=== PATIENT | male | born 1965 | race African-American/Black ===

== ENCOUNTER 2017-02-17 06:31 | Emergency (ER) | payer SELFPAY ==
[~2017-02-17] VITALS: Ht 167.6 cm; Wt 72.6 kg
[2017-02-17] MEDS ORDERED: MORP15TA PO (06:56)
[2017-02-17] MEDS ORDERED: CYCL5TAB PO (06:56)
--- NOTE | 2017-02-17 06:57 | PHYS DOC ---
Past Medical History Past Medical History: Hypertension Additional Past Medical Histor: ulcer Past Surgical History: Other Additional Past Surgical Histo: "STOMACH LINING", L FOOT SURGERY Alcohol Use: None Drug Use: Cocaine, Marijuana Adult General Chief Complaint Chief Complaint: buttocks pain HPI HPI 51-year-old male presenting to the emergency department today with left buttocks pain and left hamstring pain. His pain has been present for 2 weeks. It is intermittent worse with walking. It radiates from the buttocks down to the hamstrings. It is worse with flexion of the hamstrings. It is improved with extension of the hamstrings. He denies any low back pain. The pain currently is moderate. It waxes and wanes in severity. He denies any recent trauma to his hip. He denies any falls. Review of systems is negative for urinary or fecal incontinence, chest pain shortness of breath abdominal pain nausea vomiting fevers chills. He denies perineal paresthesias. He denies unilateral leg swelling or history of blood clots. All other review of systems is negative unless otherwise noted in history of present illness. ED course: 51-year-old male presenting to the emergency department with left buttocks and hamstring pain. Vital signs afebrile with normal heart rate. Patient has chronic hypertension which is present here as well. Physical examination: Patient has nontender venous system in the leg. There is no swelling. No clinical evidence of DVT present. Nontender midline lumbar back. Pain with passive extension of the knee and the hamstrings. Normal range of motion of the hip. The patient was given intramuscular and oral medications for pain. He had a ride home. He was in discharged home to follow-up with his doctor in the next 2-3 days. The patient was then discharged home in stable condition to follow up with their primary care physician over the next 2-3 days. They were to return if their symptoms worsened or if they were concerned for any reason. [id number] discharge instructions and return precautions were given. Patient's questions were answered to their satisfaction. Patient is comfortable plan. Review of Systems Review of Systems SEE ABOVE. Allergies Allergies Allergies Coded Allergies Type Severity Reaction Last Updated Verified No Known Drug Allergies 01/09/15 No Physical Exam Physical Exam Constitutional: Well developed, well nourished, no acute distress, non-toxic appearance. [] HENT: Normocephalic, atraumatic, bilateral external ears normal, oropharynx moist, no oral exudates, nose normal. [] Eyes: PERRLA, EOMI, conjunctiva normal, no discharge. [] Neck: Normal range of motion, no tenderness, supple, no stridor. [] Cardiovascular:Heart rate regular rhythm, no murmur [] Lungs & Thorax: Bilateral breath sounds clear to auscultation [] Abdomen: Bowel sounds normal, soft, no tenderness, no masses, no pulsatile masses. [] Skin: Warm, dry, no erythema, no rash. [] Back: No tenderness, no CVA tenderness. [] Extremities: No tenderness, no cyanosis, no clubbing, ROM intact, no edema. [] palpable pulses in all extremities with 2 second cap refill. Neurologic: Alert and oriented X 3, normal motor function, normal sensory function, no focal deficits noted. [] Psychologic: Affect normal, judgement normal, mood normal. [] Current Patient Data Vital Signs Vital Signs Date Time Temp Pulse Resp B/P (MAP) Pulse Ox O2 Delivery O2 Flow Rate FiO2 02/17/17 06:38 98.2 77 16 198/105 (136) 100 Room Air 98.2 EKG EKG [] Radiology/Procedures Radiology/Procedures [] Course & Med Decision Making Course & Med Decision Making Pertinent Labs and Imaging studies reviewed. (See chart for details) [] Dragon Disclaimer Dragon Disclaimer This electronic medical record was generated, in whole or in part, using a voice recognition dictation system. Departure Departure Impression: Primary Impression: Left thigh pain Disposition: HOME, SELF-CARE Condition: STABLE Referrals: NO PCP (PCP) ARLEEN POMPA MD Patient Instructions: Muscle Cramps, [id number] Additional Instructions: Thank you for allowing us to participate in your care today. 1. You have been provided pain medication here in the emergency department. Do not drive home. Do not operate machinery or work on these medications. 2. follow-up with your doctor in the next few days if her pain is not improving. Followup with your primary care physician in 3 days if your symptoms do not improve. Call your Primary Doctor tomorrow and inform them of your visit today. If you do not have a primary care provider you can ask for a list of our primary care providers. Return to the emergency department you have any new or concerning findings. This should be evaluated by the primary care physician and any necessary consulting services for continued management within a few days after discharge. Return to emergency room if you have any new or concerning symptoms including but not limited to fever, chills, nausea, vomiting, intractable pain, any new rashes, chest pain, shortness of air, uncontrolled bleeding, difficulty breathing, and/or vision loss. You may have been prescribed medication that can change in your level of thinking and ability to operate machinery. These medications include hydrocodone and Ativan. Also, Benadryl has been known to do this as well. Be sure to check with your pharmacist and ask if the medications you've prescribed can affect your level of consciousness. I recommend not operating heavy machinery or driving while on medication such as these. Scripts Cyclobenzaprine Hcl (CYCLOBENZAPRINE HCL) 5 Mg Tablet 1 TAB PO TID PRN Y for PAIN, #10 TAB Prov: MOLLY TRISTAN MD 02/17/17 Morphine Sulfate (MORPHINE SULFATE) 15 Mg Tablet 1 TAB PO PRN Q6-8HRS Y for SEVERE PAIN, #8 TAB Prov: MOLLY TRISTAN MD 02/17/17 MOLLY TRISTAN MD Feb 17, 2017 06:57
[2017-02-17] MEDS ORDERED: CYCLOBENZAPRINE 10 MG TABLET. PO ONE (07:00)
[2017-02-17] MEDS ORDERED: HYDROmorphone 2 MG/ML VIAL IM ONE (07:00)
[2017-02-17 07:46] VITALS: BP 177/118
== END 2017-02-17 08:20 | disposition home or self-care (01) ==
LOC: ER 06:31
DX: M79.652 Pain in left thigh (principal); M54.5 Low back pain; I10 Essential (primary) hypertension; F14.10 Cocaine abuse, uncomplicated; F12.10 Cannabis abuse, uncomplicated
CPT/HCPCS: 96372; 99283; J1170

== ENCOUNTER 2017-12-20 11:14 | Emergency (ER) | payer SELFPAY | END 2017-12-20 12:19 | disposition home or self-care (01) | LOC: ER 12:19 | DX: G89.29 Other chronic pain (principal); M54.5 Low back pain; H66.92 Otitis media, unspecified, left ear; I10 Essential (primary) hypertension | CPT/HCPCS: 99283 ==

== ENCOUNTER 2019-08-14 07:32 | Emergency (ER) | payer BC ==
[~2019-08-14] VITALS: Ht 175.3 cm; Wt 62.1 kg
[~2019-08-14 07:32] MED LIST: AMOX1TAB61 PO; AMOX875T PO; CYCL10TA2 PO; CYCL5TAB PO; GUAI118L20 PO; METH4TAB2 PO; MORP15TA PO; NAPR500T8 PO; TRIA10.8 NS
[2019-08-14 07:40] VITALS: BP 167/84
[2019-08-14] MEDS ORDERED: HYDR25SU18 RC (08:06)
[2019-08-14] MEDS ORDERED: CLIN300C8 PO (08:06)
[2019-08-14] MEDS ORDERED: SENN-121 PO (08:06)
[2019-08-14] MEDS ORDERED: MUPI15CR8 TP (08:06)
[2019-08-14] MEDS ORDERED: HYDR-3164 PO (08:06)
--- NOTE | 2019-08-14 08:06 | PHYS DOC ---
Past Medical History Past Medical History: Bronchitis, Hypertension Additional Past Medical Histor: ulcer Past Surgical History: Other Additional Past Surgical Histo: "STOMACH LINING", L FOOT SURGERY Smoking: Cigarettes Alcohol Use: None Drug Use: Cocaine, Marijuana Adult General Chief Complaint Chief Complaint: LOWER BACK PAIN OR INJURY HPI HPI 54-year-old male presents with report of rash to top of head and neck and also to buttocks which is been ongoing for several weeks. Reports had been seen at by dermatology and prescribed some cream. Patient reports cream does not seem to be helping. Patient also reports difficulty sleeping. Also complains of some swelling/discomfort to rectal area. Reports some history of constipation. Denies fever or chills. Review of Systems Review of Systems Constitutional: Denies fever or chills Eyes: Denies redness or eye pain HENT: Denies nasal congestion or sore throat Respiratory: Denies cough or shortness of breath Cardiovascular: Denies chest pain or palpitations GI: Denies abdominal pain, nausea, or vomiting; reports rectal pain and swelling : Denies dysuria or hematuria Musculoskeletal: Denies back pain or joint pain Integument: Reports rash Neurologic: Denies headache, focal weakness or sensory changes Complete systems were reviewed and found to be within normal limits, except as documented in this note. Current Medications Current Medications Current Medications Medications (Trade) Dose Ordered Sig/Archie Start Time Stop Time Status Last Admin Dose Admin Clindamycin HCl (Cleocin) 300 mg 1X ONCE 08/14/19 08:15 08/14/19 08:16 DC 08/14/19 08:19 300 MG Allergies Allergies Allergies Coded Allergies Type Severity Reaction Last Updated Verified No Known Drug Allergies 01/09/15 No Physical Exam Physical Exam Constitutional: Well developed, well nourished, no acute distress, non-toxic appearance HENT: Normocephalic, atraumatic, oropharynx moist Eyes: Conjunctiva normal, no discharge Neck: Normal range of motion, no tenderness, supple Cardiovascular: Heart rate normal, regular rhythm Lungs & Thorax: Bilateral breath sounds clear to auscultation, no wheezing Abdomen: Soft, no tenderness Rectum: swollen, tender external hemorrhoid to 9o'clock position, no thrombosis noted Skin: Warm, dry, pustular rash to scalp and extending onto neck, additional dry pustules to lower lumbar region and extending onto buttocks bilaterally, bilateral buttock induration noted, no fluctuant masses noted, dry silver scaly base noted Extremities: No tenderness, ROM intact, no edema Neurologic: Alert and oriented X 3, no focal deficits noted Psychologic: Affect normal, judgement normal Current Patient Data Vital Signs Vital Signs Date Time Temp Pulse Resp B/P (MAP) Pulse Ox O2 Delivery O2 Flow Rate FiO2 08/14/19 07:40 98.7 83 18 167/84 (111) 99 Room Air 98.7 EKG EKG [] Radiology/Procedures Radiology/Procedures [] Course & Med Decision Making Course & Med Decision Making Patient presents with history of present illness and physical exam concerning for pustular dermatitis. Patient also with physical exam findings consistent for external hemorrhoid. No thrombosis noted. No fluctuant masses appreciated. Patient is afebrile. Will treat with oral and topical antibiotics. Hemorrhoid will be treated with Anusol and stool softeners. Patient stable for discharge with outpatient follow-up with PCP/sheep farmer. Dermatology referral provided. Discussed findings and plan with patient and family, who acknowledge understanding and agreement. Dragon Disclaimer Dragon Disclaimer This electronic medical record was generated, in whole or in part, using a voice recognition dictation system. Departure Departure Impression: Primary Impression: Pustular rash Additional Impression: External hemorrhoid Disposition: 01 HOME, SELF-CARE Condition: STABLE Referrals: NO PCP (PCP) Patient Instructions: Folliculitis, Hemorrhoids, [id number] Scripts Mupirocin Calcium (MUPIROCIN CREAM) 15 Gm Cream..g. 1 REEMA TP TID for 7 Days, #15 GM 0 Refills Prov: ARLEEN SEPULVEDA DO 08/14/19 Hydrocodone/Apap 5-325 (NORCO 5-325 TABLET) 1 Each Tablet 0.5-1 TAB PO PRN Q6HRS PRN for PAIN, #10 TAB 0 Refills Prov: ARLEEN SEPULVEDA DO 08/14/19 Sennosides/Docusate Sodium (Colace 2-in-1 Tablet) 1 Each Tablet 1 TAB PO QHS for 30 Days, #30 TAB 0 Refills Prov: ARLEEN SEPULVEDA DO 08/14/19 Hydrocortisone Acetate (ANUSOL-HC) 25 Mg Supp.rect 1 SUPP RC BID for 7 Days, #14 SUPP 0 Refills Prov: ARLEEN SEPULVEDA DO 08/14/19 Clindamycin Hcl (CLINDAMYCIN HCL) 300 Mg Capsule 1 CAP PO TID, #30 CAP Prov: ARLEEN SEPULVEDA DO 08/14/19 Problem Qualifiers ARLEEN SEPULVEDA DO Aug 14, 2019 08:06
[2019-08-14] MEDS ORDERED: CLINDAMYCIN HCL 150 MG CAPSULE. PO ONE (08:15)
== END 2019-08-14 08:20 | disposition home or self-care (01) ==
LOC: ER 07:32
DX: L08.0 Pyoderma (principal); K64.4 Residual hemorrhoidal skin tags; J42 Unspecified chronic bronchitis; I10 Essential (primary) hypertension; F17.210 Nicotine dependence, cigarettes, uncomplicated; F12.90 Cannabis use, unspecified, uncomplicated; F14.90 Cocaine use, unspecified, uncomplicated; Z98.890 Other specified postprocedural states
CPT/HCPCS: 99283

== ENCOUNTER 2021-08-22 12:20 | Emergency (ER) | payer BC ==
[~2021-08-22] VITALS: Ht 175.3 cm; Wt 59.0 kg
[~2021-08-22 12:20] MED LIST changes: +CLIN-94 PO; +CYCL10TA19 PO; -CYCL10TA2 PO; +HYDR-3164 PO; +HYDR25SU18 RC; +MUPI15CR8 TP; +SENN-121 PO
[2021-08-22] MEDS ORDERED: IBUPROFEN 200 MG TABLET. PO ONE (13:15)
--- NOTE | 2021-08-22 13:15 | PHYS DOC ---
Past Medical History Past Medical History: Asthma, Bronchitis, Hypertension Additional Past Medical Histor: ulcer Past Surgical History: Other Additional Past Surgical Histo: "STOMACH LINING", L FOOT SURGERY Smoking Status: Current Every Day Smoker Alcohol Use: None Drug Use: Cocaine, Marijuana General Adult EDM: Chief Complaint: FLU SYMPTOM HPI: HPI: Patient is a 56 year old male who presents with fatigue, body aches, loss of appetite, diarrhea. Patient states symptoms started 3 days ago. Denies cough, shortness of breath, chest pain. Patient states that he took ibuprofen yesterday which helped with symptoms. Patient is refusing a Covid and flu swab. Patient has a history of hypertension but has not been taking his medications. Patient was vaccinated x1 for Covid with [employer]. Denies all other health history. Review of Systems: Review of Systems: ROS At least 10 ROS systems have been reviewed and are negative except as documented in the HPI. General: Negative except as outlined in HPI above. Skin: Negative except as outlined in HPI above. HEENT: Negative except as outlined in HPI above. Neck: Negative except as outlined in HPI above. Respiratory: Negative except as outlined in HPI above.. Cardiovascular: Negative except as outlined in HPI above. Abdomen: Negative except as outlined in HPI above. : Negative except as outlined in HPI above. Back/MSK: Negative except as outlined in HPI above. Neuro: Negative except as outlined in HPI above. Psych: Negative except as outlined in HPI above. Heart Score: C/O Chest Pain: No Risk Factors: Risk Factors: DM, Current or recent (<one month) smoker, HTN, HLP, family history of CAD, obesity. Risk Scores: Score 0 - 3: 2.5% MACE over next 6 weeks - Discharge Home Score 4 - 6: 20.3% MACE over next 6 weeks - Admit for Clinical Observation Score 7 - 10: 72.7% MACE over next 6 weeks - Early Invasive Strategies Allergies: Allergies: Allergies Coded Allergies Type Severity Reaction Last Updated Verified No Known Drug Allergies 01/09/15 No Physical Exam: PE: Constitutional: Well developed, well nourished, no acute distress, non-toxic appearance. [] HENT: Normocephalic, atraumatic, bilateral external ears normal, oropharynx moist, no oral exudates, nose normal. [] Eyes: PERRLA, EOMI, conjunctiva normal, no discharge. [] Neck: Normal range of motion, no tenderness, supple, no stridor. [] Cardiovascular:Heart rate regular rhythm, no murmur [] Lungs & Thorax: Bilateral breath sounds clear to auscultation [] Abdomen: Bowel sounds normal, soft, no tenderness, no masses, no pulsatile masses. [] Skin: Warm, dry, no erythema, no rash. [] Back: No tenderness, no CVA tenderness. [] Extremities: No tenderness, no cyanosis, no clubbing, ROM intact, no edema. [] Neurologic: Alert and oriented X 3, normal motor function, normal sensory function, no focal deficits noted. [] Psychologic: Affect normal, judgement normal, mood normal. [] EKG: EKG: [] Radiology/Procedures: Radiology/Procedures: [] Course & Med Decision Making: Course & Med Decision Making Pertinent Labs and Imaging studies reviewed. (See chart for details) [] 56-year-old male presents with fatigue, congestion, diarrhea. Patient is refusing to be swabbed for Covid or influenza. Discussed quarantining with patient. Advised patient to take [id number] medications such as ibuprofen and Tylenol to help with symptoms. Discussed return precautions in length with patient. Patient verbalizes understanding of discharge instructions. Patient's blood pressure was mildly elevated. Patient has a history of hypertension and has not been taking his blood pressure medications. Naelon Disclaimer: Delores Disclaimer: This electronic medical record was generated, in whole or in part, using a voice recognition dictation system. Departure Departure Impression: Primary Impression: Fatigue Qualified Codes: R53.83 - Other fatigue Additional Impression: Nasal congestion Disposition: 01 HOME / SELF CARE / HOMELESS Condition: STABLE Referrals: NO PCP (PCP) Patient Instructions: Fatigue Additional Instructions: You are seen in the emergency room for body aches, fatigue, congestion. You refused to have a Covid or influenza test completed. You most likely have Covid. You need to quarantine for a total of 5 days. Plus an additional 5 days you need to wear a mask. You must be fever free for 24 hours without the use of ibuprofen or Tylenol as well. Use [id number] medications to help with symptoms. This is unfortunately a virus that will have to run its course. Placed return to emergency room if you have worsening symptoms or concerns such as chest pain, shortness of breath. You need to follow-up with your PCP to get back on your blood pressure medications. EMERGENCY DEPARTMENT GENERAL DISCHARGE INSTRUCTIONS Thank you for coming to [facility] Emergency Department (ED) today and trusting us with you care. We trust that you had a positive experience in our Emergency Department. If you wish to speak to the department management, you may call the Director at [phone]. YOUR FOLLOW UP INSTRUCTIONS ARE FOLLOWS: 1. Do you have a private Doctor? If you do not have a private doctor, please ask for a resource list of physicians or clinics that may be able to assist you with follow up care. 2. The Emergency Physicain has interpreted your x-rays. The X-Ray specialist will also review them. If there is a change in the findings, you will be notified in 48 hours when at all possible. 3. A lab test or culture has been done, your results will be reviewed and you will be notified if you need a change in treatment. ADDITIONAL INSTRUCTIONS AND INFORMATION: 1. Your care today has been supervised by a physician who is specially trained in emergency care. Many problems require more than one evaluation for a complete diagnosis and treatment. We recommend that you schedule your follow up appointment as recommended to ensure complete treatment of you illness or injury. If you are unable to obtain follow up care and continue to have a problem, or if your condition worsens, we recommend that you return to the ED. 2. We are not able to safely determine your condition over the phone nor are we able to give sound medical advice over the phone. For these safety reasons, if you call for medical advice we will ask you to come to the ED for further evaluation. 3. If you have any questions regarding these discharge instructions please call the ED at [phone]. SAFETY INFORMATION: In the interest of safety, wellness, and injury prevention; we encourage you to wear your sealbelt, if you smoke; quite smoking, and we encourage family to use a protective helmet for bicycling and other sporting events that present an increased risk for head injury. IF YOUR SYMPTOMS WORSEN OR NEW SYMPTOMS DEVELOP, OR YOU HAVE CONCERNS ABOUT YOUR CONDITION; OR IF YOUR CONDITION WORSENS WHILE YOU ARE WAITING FOR YOUR FOLLOW UP APPOINTMENT; EITHER CONTACT YOUR PRIMARY CARE DOCTOR, THE PHYSICIAN WHOSE NAME AND NUMBER YOU WERE GIVEN, OR RETURN TO THE ED IMMEDIATELY. ENRIQUETA LINCOLN APRN 6, 2022 13:15
[2021-08-22 13:41] VITALS: BP 201/103
== END 2021-08-22 13:45 | disposition home or self-care (01) ==
LOC: ER 12:20
DX: R53.83 Other fatigue (principal); R09.81 Nasal congestion; R63.0 Anorexia; M79.10 Myalgia, unspecified site; R19.7 Diarrhea, unspecified; J45.909 Unspecified asthma, uncomplicated; I10 Essential (primary) hypertension; F17.200 Nicotine dependence, unspecified, uncomplicated
CPT/HCPCS: 99282